=== PATIENT | female | born 1960 | race Caucasian/White ===

== ENCOUNTER 2020-06-29 09:26 | Outpatient (CLI) | payer BC ==
[~2020-06-29] VITALS: Ht 172.7 cm; Wt 90.7 kg
[2020-06-29] VITALS (10 sets, daily range): BP systolic 145–171; BP diastolic 68–97
[2020-06-29] MEDS ORDERED: ASPIRIN CHEWABLE 81 MG TABLET. PO ONE (09:45)
[2020-06-29] MEDS ORDERED: LIDOCAINE 1% Multi-Dose 20 ML VIAL. ONE ×2 (09:54→10:53)
[2020-06-29] MEDS ORDERED: IODIXANOL 320 MG/ML 100 ML VIAL. ONE (09:54)
[2020-06-29] MEDS ORDERED: MOME13HF2 IH (09:57)
[2020-06-29] MEDS ORDERED: EVOL140P3 SQ (09:57)
[2020-06-29] MEDS ORDERED: OTEZLA PO (09:57)
[2020-06-29] MEDS ORDERED: LEVO175T5 PO (09:57)
[2020-06-29] MEDS ORDERED: CITA20TA9 PO (09:57)
[2020-06-29] MEDS ORDERED: ALPR0.5T PO (09:57)
[2020-06-29] MEDS ORDERED: [UNRECOGNIZED DRUG - OTHER] TOP (09:57)
[2020-06-29] MEDS ORDERED: ZOLP10TA PO (09:57)
[2020-06-29 10:09] LABS: CALCIUM 9.1 mg/dL (8.5-10.1); CREATININE 0.8 mg/dL (0.6-1.0); GFR 73.9; POTASSIUM 4.2 mmol/L (3.5-5.1)
[2020-06-29 10:25] LABS: HEMATOCRIT 43.9 % (36.0-47.0); HEMOGLOBIN 15.3 g/dL (12.0-15.5); RED BLOOD COUNT 4.39 x10^6/uL (3.50-5.40); WHITE BLOOD COUNT 8.8 x10^3/uL (4.0-11.0)
[2020-06-29] MEDS ORDERED: MIDAZOLAM HCL/PF 2 MG/2 ML VIAL. ONE ×2 (10:42→10:48)
[2020-06-29 10:44] LABS: PROTHROMBIN TIME PATIENT 12.5 SEC (11.7-14.0)
--- NOTE | 2020-06-29 11:06 | EKG ---
[facility] [address] [place] [address] Test Date: 2020-06-29 Test Time: 10:19:09 Pat Name: VITALIY YEE Department: Room: Gender: F Desk Top Publisher: [place] : 1960 Requested By: SCOTTY TAVERAS Order Number: [id number] Reading MD: Measurements Intervals [place] Rate: 71 P: 31 MS: 148 QRS: 68 QRSD: 84 T: 28 QT: 410 QTc: 451 Interpretive Statements SINUS RHYTHM NORMAL ECG RI6.02 No previous ECG available for comparison
[2020-06-29] MEDS ORDERED: IODIXANOL 320 MG/ML 100 ML VIAL. IART ONE (11:15)
[2020-06-29] MEDS ORDERED: LIDOCAINE 1% Multi-Dose 20 ML VIAL. INJ ONE (11:15)
[2020-06-29] MEDS ORDERED: MIDAZOLAM HCL/PF 2 MG/2 ML VIAL. IV ONE (11:15)
[2020-06-29] MEDS ORDERED: IV NORMAL SALINE 1000ML BAG 1,000 ML IV SCH (11:35)
[2020-06-29] MEDS ORDERED: NITROGLYCERIN SUBLINGUAL 0.4 MG BOTTLE OF 25. SL PRN (11:45)
[2020-06-29] MEDS ORDERED: 0.9 % SODIUM CHLORIDE 10 ML DISP.SYRIN. IV PRN (11:45)
[2020-06-29] MEDS ORDERED: BISACODYL 10 MG SUPP.RECT. PR PRN (11:45)
--- NOTE | 2020-06-29 14:15 | NUR ---
Discharge Note: VITALIY YEE Discharge instructions and discharge home medications reviewed with Patient and a copy given. All questions have been answered and understanding verbalized. Groin site remains dry and intact. The following instructions and handouts were given: groin site, alcohol intake, moderate sedation Discontinued lines and drains: Peripheral IV intact. Patient discharged to Home or Self Care with Self via Wheelchair [facility]
--- NOTE | 2020-07-08 16:46 | CARD ---
MR#: [id number] Date of Study: 06/29/2020 Ordering Physician: SCOTTY MCCALL, Referring Physician: SCOTTY MCCALL, Tech: RT Roxi (R) BON APPROVED REPORT Technologist: Cristy Hills RT (R) Nurse: Charo Nettles R.N. Procedure(s) performed: FLUORO TIME: 3.5 MIN DOSE: 59 Gycm2 Contrast: 44ml Moderate Sedation: 46 min Left heart catheterization, selective left and right coronary angiography, measurement of left ventri cular end-diastolic pressures, supervision of conscious sedation HISTORY The patient is a 59 year-old female with a history of : family history of premature CAD. INDICATION The indication(s) include : positive stress test, Chest pain. C[facility] Clinical Frailty Scale [facility] Clinical Frailty Scale: Managing Well Heart Failure Heart Failure: No CASE TECHNIQUE The patient was brought electively into the cardiac catheterization lab. A timeout was performed conf irming the patient's name, date of , procedure, and site of procedure. All necessary parties wer e wearing the appropriate personal protective equipment and radiation monitoring devices. After expla ining the risks and benefits of the procedure, informed consent was obtained.(See nursing notes for m edications administered). The right groin was sterilely prepped and draped. The right femoral groin w as infiltrated with 1% Lidocaine subcutaneous anesthesia. During this case, Fluoroscopy and Iso-osmol ar contrast were used for imaging. A 4 [place] sheath was inserted into the right femoral artery witho ut difficulty. Coronary angiography was performed using coronary diagnostic catheters. The left coron josé luis system was accessed and visualized with a Diagnostic catheter. The right coronary system was acce ssed and visualized with a Diagnostic catheter. The left ventricle was accessed and visualized with a Diagnostic catheter. Left ventricular/Aortic Valve gradient assessed on pullback. Hemostasis was obt ained with manual pressure following sheath removal without any complications. The patient tolerated the procedure well and there were no complications associated with the procedure. Coronary Angiography The patient's coronary anatomy is right dominant. The left main coronary artery is a medium size vessel appearing normal. The left main trifurcates to the left anterior descending, circumflex, and ramus. The left anterior descending artery is a medium size vessel free of disease that rapidly tapers towar ds the apex and the anterior interventricular sulcus terminating is small thin vessel above the apex. The first diagonal branch is a small size vessel without stenosis. The circumflex artery is a small size vessel With mild proximal lesion of less than 30%. The first ob tuse marginal branch is a small size vessel with intimal irregularities. The ramus intermedius artery is a Diminutive size vessel without stenosis. The right coronary artery is a large size vessel that courses in the normal fashion and tortuous cour se in the proximal and mid portions. He reached the crux of the heart and gives rise to small caliber posterior wall branches posterior descending artery without any high-grade obstructive lesion. The r ight posterior descending artery is a Diminutive size vessel without high-grade stenosis. Conclusion 1. Essentially normal coronary arteries with mild luminal irregularities identified 2. Normal hemodynamic Recommendations Cardiac Risk Reduction Program Medical Therapy Signed by : Scotty Mccall, Electronically Approved : 07/08/2020 16:46:23
== END 2020-06-29 14:15 | disposition home or self-care (01) ==
LOC: CCL 09:26
PROVIDERS: ATTEND Internal Medicine
DX: R07.89 Other chest pain (principal); R06.00 Dyspnea, unspecified; E78.5 Hyperlipidemia, unspecified; Z88.0 Allergy status to penicillin; Z88.5 Allergy status to narcotic agent; Z79.899 Other long term (current) drug therapy; Z87.891 Personal history of nicotine dependence; Z82.49 Family history of ischemic heart disease and other diseases of the circulatory system
CPT/HCPCS: 36415; 80048; 85027; 85610; 93005; 93458; 99152; 99153; C1769; C1892; J1644; J2250; J3490; Q9967